=== PATIENT | female | born 1955 | race Caucasian/White ===

== ENCOUNTER → 2016-04-16 | Outpatient (CLI) | payer MEDICARE, MEDICAID ==
[~2016-04-16] MED LIST: ALORA0.05 MG/24 TD; ASPIR-LOW81 MG PO; ASPIRIN 81M81 MG/TA2 PO; ATIVAN1 MG PO; BYDUREON2MG SQ; CYMBALTA 30MG30 MG; ELMIRON PO; ESTRADIOL0.5 MG PO; GLUCOPHAGE500 MG/TAB PO; IBUPROFEN; LIPITOR 40MG TA40 MG PO; LISINOPRIL10 MG PO; LORTAB 5/500 501 TAB PO; LORTAB PO; MOBIC15 MG; MORPHINE; MOTRIN800 MG PO; MS CONTIN30 MG PO; NEURONTIN800 MG/TAB PO; NORCO 325 MG-51 TAB PO; OMEGA-3 FISH1200 MG PO; PERCOCET 325 MG1 TA2 PO; PHENERGAN 25 TA25 MG PO; PRAVACHOL10 MG PO; ROBINUL1ML; TRICOR145 MG PO; TYLENOL 500MG500 MG PO; ULTRAM50 MG PO; VALIUM 2MG T2 MG/TAB PO; VALIUM 5MG T5 MG/TAB; VALIUM5 MG PO; VIT D; VITAMIN D1000 IU PO; ZESTRIL 10MG10 MG PO; [UNRECOGNIZED DRUG - OTHER] PO; [UNRECOGNIZED DRUG - REMARK]
== END ==
LOC: MC.RAD 13:33
DX: Z12.31 Encounter for screening mammogram for malignant neoplasm of breast (principal)

== ENCOUNTER → 2016-07-04 | Outpatient (CLI) | payer MEDICARE, MEDICAID | LOC: COL.RAD 07:30 | PROVIDERS: Family Medicine | DX: Z13.89 Encounter for screening for other disorder (principal); M54.2 Cervicalgia; M48.02 Spinal stenosis, cervical region; Z98.1 Arthrodesis status | CPT/HCPCS: A9585 ==

== ENCOUNTER → 2016-07-23 | Outpatient (CLI) | payer MEDICARE, MEDICAID | LOC: MHCPAIN 07:36 | DX: G89.29 Other chronic pain (principal); M50.90 Cervical disc disorder, unspecified, unspecified cervical region; M48.02 Spinal stenosis, cervical region | CPT/HCPCS: G0463 ==

== ENCOUNTER → 2016-07-31 | Outpatient (CLI) | payer MEDICARE, MEDICAID | LOC: MHCPAIN 08:25 | DX: M50.30 Other cervical disc degeneration, unspecified cervical region (principal) ==

== ENCOUNTER → 2016-08-06 | Outpatient (CLI) | payer MEDICARE, MEDICAID | LOC: MHCPAIN 11:49 | DX: G89.29 Other chronic pain (principal); M50.90 Cervical disc disorder, unspecified, unspecified cervical region; M54.12 Radiculopathy, cervical region; M48.02 Spinal stenosis, cervical region | CPT/HCPCS: G0463 ==

== ENCOUNTER → 2016-08-14 | Outpatient (CLI) | payer MEDICARE, MEDICAID | LOC: MHCPAIN 07:43 | DX: M50.90 Cervical disc disorder, unspecified, unspecified cervical region (principal) | CPT/HCPCS: J1040; Q9967 ==

== ENCOUNTER → 2016-08-19 | Outpatient (CLI) | payer MEDICARE, MEDICAID | LOC: MHCPAIN 08:26 | DX: G89.29 Other chronic pain (principal); M50.90 Cervical disc disorder, unspecified, unspecified cervical region; M54.12 Radiculopathy, cervical region; M54.81 Occipital neuralgia; R51 Headache; Z87.891 Personal history of nicotine dependence | CPT/HCPCS: G0463 ==

== ENCOUNTER 2016-09-13 14:21 | Emergency (ER) | payer MEDICARE, MEDICAID ==
[~2016-09-13] VITALS: Ht 167.6 cm; Wt 80.5 kg
[~2016-09-13 14:21] MED LIST changes: -CYMBALTA 30MG30 MG; -LIPITOR 40MG TA40 MG PO; -MOBIC15 MG; -NEURONTIN800 MG/TAB PO; -PHENERGAN 25 TA25 MG PO; -ROBINUL1ML; -ZESTRIL 10MG10 MG PO
[2016-09-13 14:25] VITALS: TEMP 97.8
[2016-09-13] MEDS ORDERED: ROBINUL1ML (14:30)
[2016-09-13] MEDS ORDERED: LIPITOR 40MG TA40 MG PO (14:31)
[2016-09-13] MEDS ORDERED: ZESTRIL 10MG10 MG PO (14:31)
[2016-09-13] MEDS ORDERED: CYMBALTA 30MG30 MG (14:32)
[2016-09-13] MEDS ORDERED: MOBIC15 MG (14:32)
[2016-09-13] MEDS ORDERED: NEURONTIN800 MG/TAB PO (14:33)
[2016-09-13 15:37] LABS: BASO % 0.4 % (0.0-2.0); EOS # 0.3 (0.0-0.7); EOS % 3.3 % (0-4.0); GRAN # 5.1 (1.4-6.5); GRAN % 67.6 % (42.2-75.2); HEMATOCRIT 50.5 % (37.0-47.0); HEMOGLOBIN 16.6 g/dl (12.5-16.0); LYMPH # 1.7 (1.2-3.4); LYMPH % 22.1 % (20.0-51.0); MEAN CELL VOLUME 92 fl (80.0-100.0); MEAN CORPUSCULAR HEMOGLOBIN 30 pg (27.0-31.0); MEAN CORPUSCULAR HGB CONC 33 g/dl (33.0-37.0); MEAN PLATELET VOLUME 10.2 fl (7.4-10.4); MONO # 0.5 (0.1-0.6); MONO % 6.5 % (1.7-9.3); PLATELET COUNT 344 K/mm3 (130-400); RED BLOOD COUNT 5.52 M/mm3 (4.10-5.30); REDCELL DISTRIBUTION WIDTH-CV 13.1 % (11.5-14.5); WHITE BLOOD COUNT 7.6 K/mm3 (4.8-10.8)
[2016-09-13 15:46] LABS: ADJUSTED CALCIUM 9.2 mg/dL (8.4-10.2); ALBUMIN 4.9 gm/dL (3.5-5.0); BILIRUBIN,TOTAL 0.7 mg/dL (0.0-1.0); CALCIUM 9.9 mg/dL (8.4-10.2); CREATININE, serum 0.66 mg/dL (0.52-1.25); TOTAL PROTEIN 8.2 gm/dL (6.4-8.2)
[2016-09-13] MEDS ORDERED: PHENERGAN 25 TA25 MG PO (16:36)
[2016-09-13 17:30] LABS: PH 6 (5-8); SQUAMOUS EPITHELIAL >50 /hpf; URINE APPEARANCE Cloudy; URINE BACTERIA None Seen /hpf; URINE BILIRUBIN Negative (NEGATIVE); URINE BLOOD 2+ (NEGATIVE); URINE COLOR Yellow; URINE GLUCOSE 3+ (NEGATIVE); URINE KETONE Negative (NEGATIVE); URINE RBC 20-50 /hpf; URINE UROBILINOGEN Negative (NEGATIVE)
[2016-09-13 17:31] LABS: URINE WBC >50 /hpf
[2016-09-13 17:49] VITALS: PULSE 102
== END 2016-09-13 17:50 | disposition home or self-care (01) ==
LOC: COL.ER 14:21
PROVIDERS: Emergency Medicine
DX: R10.84 Generalized abdominal pain (principal); R11.2 Nausea with vomiting, unspecified; R19.7 Diarrhea, unspecified; E11.9 Type 2 diabetes mellitus without complications; Z79.84 Long term (current) use of oral hypoglycemic drugs
CPT/HCPCS: J2405; J2550; J7030

== ENCOUNTER → 2016-09-23 | Outpatient (CLI) | payer MEDICARE, MEDICAID ==
[~2016-09-23] MED LIST changes: +CYMBALTA 30MG30 MG; +LIPITOR 40MG TA40 MG PO; +MOBIC15 MG; +NEURONTIN800 MG/TAB PO; +PHENERGAN 25 TA25 MG PO; +ROBINUL1ML; +ZESTRIL 10MG10 MG PO
== END ==
LOC: MHCPAIN 09:32
DX: G89.29 Other chronic pain (principal); M50.90 Cervical disc disorder, unspecified, unspecified cervical region; M54.12 Radiculopathy, cervical region; M54.81 Occipital neuralgia; M54.16 Radiculopathy, lumbar region; M96.1 Postlaminectomy syndrome, not elsewhere classified
CPT/HCPCS: G0463

== ENCOUNTER → 2016-09-29 | Outpatient (CLI) | payer MEDICARE, MEDICAID | LOC: COL.RAD 10:32 | DX: M51.16 Intervertebral disc disorders with radiculopathy, lumbar region (principal); M48.06 Spinal stenosis, lumbar region ==

== ENCOUNTER 2016-10-20 15:00 | Outpatient (RCR) | payer MEDICARE, MEDICAID | END 2017-01-08 | disposition still patient (30) | LOC: MKS.ESL.PT | DX: M51.17 Intervertebral disc disorders with radiculopathy, lumbosacral region (principal); Z90.49 Acquired absence of other specified parts of digestive tract; Z98.1 Arthrodesis status | CPT/HCPCS: G8978-GP; G8979-GP ==

== ENCOUNTER → 2016-10-21 | Outpatient (CLI) | payer MEDICARE, MEDICAID | LOC: MHCPAIN 09:04 | DX: G89.29 Other chronic pain (principal); M47.817 Spondylosis without myelopathy or radiculopathy, lumbosacral region; M54.16 Radiculopathy, lumbar region; M50.90 Cervical disc disorder, unspecified, unspecified cervical region; M96.1 Postlaminectomy syndrome, not elsewhere classified; Z87.891 Personal history of nicotine dependence | CPT/HCPCS: G0463 ==

== ENCOUNTER → 2016-11-19 | Outpatient (CLI) | payer MEDICARE, MEDICAID | LOC: MHCPAIN 12:16 | DX: G89.29 Other chronic pain (principal); M47.817 Spondylosis without myelopathy or radiculopathy, lumbosacral region; M54.16 Radiculopathy, lumbar region; M53.3 Sacrococcygeal disorders, not elsewhere classified | CPT/HCPCS: G0463 ==

== ENCOUNTER → 2016-11-20 | Outpatient (CLI) | payer MEDICARE, MEDICAID | LOC: MHCPAIN 10:15 | DX: M54.16 Radiculopathy, lumbar region (principal) | CPT/HCPCS: J1100; Q9967 ==

== ENCOUNTER → 2016-12-05 | Outpatient (CLI) | payer MEDICARE, MEDICAID | LOC: MHCPAIN 11:15 | DX: G89.29 Other chronic pain (principal); M47.27 Other spondylosis with radiculopathy, lumbosacral region; M96.1 Postlaminectomy syndrome, not elsewhere classified; Z87.891 Personal history of nicotine dependence | CPT/HCPCS: G0463 ==

== ENCOUNTER → 2017-01-05 | Outpatient (CLI) | payer MEDICARE, MEDICAID | LOC: MHCPAIN 11:05 | DX: G89.29 Other chronic pain (principal); M47.817 Spondylosis without myelopathy or radiculopathy, lumbosacral region; M54.16 Radiculopathy, lumbar region; M96.1 Postlaminectomy syndrome, not elsewhere classified; M54.81 Occipital neuralgia; M50.90 Cervical disc disorder, unspecified, unspecified cervical region; R51 Headache | CPT/HCPCS: G0463 ==

== ENCOUNTER → 2017-03-30 | Outpatient (CLI) | payer MEDICARE, MEDICAID | LOC: MHCPAIN 11:30 | DX: G89.29 Other chronic pain (principal); M47.27 Other spondylosis with radiculopathy, lumbosacral region; M96.1 Postlaminectomy syndrome, not elsewhere classified; M50.90 Cervical disc disorder, unspecified, unspecified cervical region; Z87.891 Personal history of nicotine dependence | CPT/HCPCS: G0463 ==

== ENCOUNTER → 2017-07-08 | Outpatient (CLI) | payer MEDICARE, MEDICAID | LOC: MHCPAIN 11:42 | DX: G89.29 Other chronic pain (principal); M50.90 Cervical disc disorder, unspecified, unspecified cervical region; M54.12 Radiculopathy, cervical region; R51 Headache | CPT/HCPCS: G0463 ==

== ENCOUNTER → 2017-07-24 | Outpatient (CLI) | payer MEDICARE, MEDICAID ==
[~2017-07-24] MED LIST changes: +BYDUREON PEN2 MG SQ; +CANA300T PO; +MINIPRESS 5M5 MG/CAP PO; +PRINIVIL5 MG PO
== END ==
LOC: MHCPAIN 11:50
DX: G89.29 Other chronic pain (principal); M50.90 Cervical disc disorder, unspecified, unspecified cervical region; M17.11 Unilateral primary osteoarthritis, right knee; M16.11 Unilateral primary osteoarthritis, right hip
CPT/HCPCS: G0463

== ENCOUNTER 2017-07-29 02:34 | Emergency (ER) | payer MEDICARE, MEDICAID ==
[~2017-07-29 02:34] MED LIST changes: -BYDUREON PEN2 MG SQ; -CANA300T PO; -MINIPRESS 5M5 MG/CAP PO; -PRINIVIL5 MG PO
[2017-07-29 02:37] VITALS: TEMP 97.9
[2017-07-29 03:23] LABS: BASO # 0.1 (0.0-0.2); BASO % 0.6 % (0.0-2.0); EOS # 0.1 (0.0-0.7); EOS % 0.8 % (0-4.0); GRAN # 5.9 (1.4-6.5); GRAN % 68.6 % (42.2-75.2); HEMATOCRIT 46.8 % (37.0-47.0); HEMOGLOBIN 15.4 g/dl (12.5-16.0); LYMPH % 23.4 % (20.0-51.0); MEAN CELL VOLUME 92 fl (80.0-100.0); MEAN CORPUSCULAR HEMOGLOBIN 30 pg (27.0-31.0); MEAN CORPUSCULAR HGB CONC 33 g/dl (33.0-37.0); MEAN PLATELET VOLUME 9.4 fl (7.4-10.4); MONO # 0.5 (0.1-0.6); MONO % 6.2 % (1.7-9.3); PLATELET COUNT 402 K/mm3 (130-400); REDCELL DISTRIBUTION WIDTH-CV 12.9 % (11.5-14.5)
[2017-07-29] MEDS ORDERED: BYDUREON PEN2 MG SQ (03:32)
[2017-07-29] MEDS ORDERED: PRINIVIL5 MG PO (03:32)
[2017-07-29] MEDS ORDERED: CANA300T PO (03:32)
[2017-07-29] MEDS ORDERED: PERCOCET 325 MG1 TA2 PO (03:34)
[2017-07-29] MEDS ORDERED: MINIPRESS 5M5 MG/CAP PO (03:34)
[2017-07-29 03:35] LABS: ALANINE AMINOTRANSFERASE 35 U/L (9-52); ALBUMIN 4.8 gm/dL (3.5-5.0); ALKALINE PHOSPHATASE 96 U/L (50-136); ANION GAP 18 mmol/L (7-16); AST,SGOT 20 U/L (15-37); BILIRUBIN,TOTAL 0.4 mg/dL (0.0-1.0); BLOOD UREA NITROGEN 16 mg/dL (7-17); C-REACTIVE PROTEIN < 0.5 mg/dL (0.0-0.9); CALCIUM 9.9 mg/dL (8.4-10.2); CARBON DIOXIDE 23 mmol/L (22-30); CHLORIDE 104 mmol/L (98-107); CREATININE, serum 0.56 mg/dL (0.52-1.25); GLUCOSE 146 mg/dL (74-106); POTASSIUM 3.7 mmol/L (3.4-5.0); SODIUM 145 mmol/L (137-145); TOTAL PROTEIN 9.1 gm/dL (6.4-8.2)
[2017-07-29 04:15] VITALS: BP 129/79; PULSE 87
== END 2017-07-29 04:15 | disposition home or self-care (01) ==
LOC: COL.ER 02:34
PROVIDERS: Emergency Medicine
DX: G89.29 Other chronic pain (principal); M79.1 Myalgia; M25.50 Pain in unspecified joint; Z90.710 Acquired absence of both cervix and uterus; Z87.442 Personal history of urinary calculi; Z87.891 Personal history of nicotine dependence; Z98.51 Tubal ligation status; Z79.84 Long term (current) use of oral hypoglycemic drugs
CPT/HCPCS: J1885; J2060; J7030

== ENCOUNTER → 2017-07-30 | Outpatient (CLI) | payer MEDICARE, MEDICAID ==
[~2017-07-30] MED LIST changes: +BYDUREON PEN2 MG SQ; +CANA300T PO; +MINIPRESS 5M5 MG/CAP PO; +PRINIVIL5 MG PO
== END ==
LOC: MHCPAIN 08:24
DX: M16.11 Unilateral primary osteoarthritis, right hip (principal); M17.11 Unilateral primary osteoarthritis, right knee
CPT/HCPCS: J1040; Q9967

== ENCOUNTER → 2017-08-12 | Outpatient (CLI) | payer MEDICARE, MEDICAID | LOC: MHCPAIN 09:39 | DX: G89.29 Other chronic pain (principal); M47.817 Spondylosis without myelopathy or radiculopathy, lumbosacral region; M54.16 Radiculopathy, lumbar region; M53.3 Sacrococcygeal disorders, not elsewhere classified; M96.1 Postlaminectomy syndrome, not elsewhere classified; M16.11 Unilateral primary osteoarthritis, right hip; M17.11 Unilateral primary osteoarthritis, right knee | CPT/HCPCS: G0463 ==

== ENCOUNTER → 2017-09-01 | Outpatient (CLI) | payer MEDICARE, MEDICAID | LOC: MC.RAD 10:52 | DX: Z12.31 Encounter for screening mammogram for malignant neoplasm of breast (principal) ==

== ENCOUNTER 2017-09-03 10:00 | Outpatient (RCR) | payer MEDICARE, MEDICAID | END 2017-09-24 09:34 | disposition home or self-care (01) | LOC: MKS.ESL.PT 10:00 | DX: M96.1 Postlaminectomy syndrome, not elsewhere classified (principal); M47.27 Other spondylosis with radiculopathy, lumbosacral region; M25.551 Pain in right hip; M53.3 Sacrococcygeal disorders, not elsewhere classified | CPT/HCPCS: G0283-GP; G8990-GP; G8991-GP; G8992-GP ==

== ENCOUNTER → 2017-10-20 | Outpatient (CLI) | payer MEDICARE, MEDICAID | LOC: MHCPAIN 12:31 | DX: G89.29 Other chronic pain (principal); M47.817 Spondylosis without myelopathy or radiculopathy, lumbosacral region; M54.16 Radiculopathy, lumbar region; M53.3 Sacrococcygeal disorders, not elsewhere classified; M96.1 Postlaminectomy syndrome, not elsewhere classified; M48.061 Spinal stenosis, lumbar region without neurogenic claudication | CPT/HCPCS: G0463 ==

== ENCOUNTER → 2017-10-26 | Outpatient (CLI) | payer MEDICARE, MEDICAID | LOC: MHCPAIN 12:50 | DX: M47.817 Spondylosis without myelopathy or radiculopathy, lumbosacral region (principal); M51.26 Other intervertebral disc displacement, lumbar region | CPT/HCPCS: J1040; J1100; J2250; J3010; Q9967 ==

== ENCOUNTER → 2018-01-19 | Outpatient (CLI) | payer MEDICARE, MEDICAID | LOC: MHCPAIN 13:41 | DX: G89.29 Other chronic pain (principal); M47.817 Spondylosis without myelopathy or radiculopathy, lumbosacral region; M54.16 Radiculopathy, lumbar region; M53.3 Sacrococcygeal disorders, not elsewhere classified; M96.1 Postlaminectomy syndrome, not elsewhere classified | CPT/HCPCS: G0463 ==

== ENCOUNTER → 2018-02-12 | Outpatient (CLI) | payer MEDICARE, MEDICAID | LOC: COL.LAB 08:47 | DX: Z01.812 Encounter for preprocedural laboratory examination (principal); M16.11 Unilateral primary osteoarthritis, right hip ==

== ENCOUNTER → 2018-02-23 | Outpatient (REF) ==
[2018-02-23 09:27] LABS: COLLECTION METHOD CATHETER
[2018-02-23 09:36] LABS: PH 6 (5-8); URINE APPEARANCE Hazy; URINE BACTERIA None Seen /hpf; URINE BILIRUBIN Negative (NEGATIVE); URINE BLOOD 1+ (NEGATIVE); URINE COLOR Yellow; URINE GLUCOSE 3+ (NEGATIVE); URINE KETONE Trace (NEGATIVE); URINE LEUKOCYTE ESTERASE 3+ (NEGATIVE); URINE NITRATE Negative (NEGATIVE); URINE PROTEIN(semi-quant) Negative (NEGATIVE); URINE UROBILINOGEN Negative (NEGATIVE)
== END ==
LOC: ZMSC 09:25
PROVIDERS: Orthopaedic Surgery
DX: Z01.89 Encounter for other specified special examinations (principal)

== ENCOUNTER → 2018-05-04 | Outpatient (CLI) | payer MEDICARE, MEDICAID | LOC: COL.RAD 09:13 | DX: M48.07 Spinal stenosis, lumbosacral region (principal); M51.16 Intervertebral disc disorders with radiculopathy, lumbar region; Z96.641 Presence of right artificial hip joint ==

== ENCOUNTER → 2018-07-05 | Outpatient (CLI) | payer MEDICARE, MEDICAID | LOC: MHCPAIN 09:03 | DX: G89.29 Other chronic pain (principal); M47.817 Spondylosis without myelopathy or radiculopathy, lumbosacral region; M54.16 Radiculopathy, lumbar region; M53.3 Sacrococcygeal disorders, not elsewhere classified; M96.1 Postlaminectomy syndrome, not elsewhere classified; M50.90 Cervical disc disorder, unspecified, unspecified cervical region; M54.12 Radiculopathy, cervical region | CPT/HCPCS: G0463 ==

== ENCOUNTER → 2018-07-15 | Outpatient (CLI) | payer MEDICARE, MEDICAID | LOC: COL.RAD 11:59 | DX: M19.011 Primary osteoarthritis, right shoulder (principal); M75.101 Unspecified rotator cuff tear or rupture of right shoulder, not specified as traumatic ==

== ENCOUNTER → 2018-09-01 | Outpatient (CLI) | payer MEDICARE, MEDICAID | LOC: MHCPAIN 08:31 | DX: G89.29 Other chronic pain (principal); M47.817 Spondylosis without myelopathy or radiculopathy, lumbosacral region; M54.16 Radiculopathy, lumbar region; M53.3 Sacrococcygeal disorders, not elsewhere classified | CPT/HCPCS: G0463 ==

== ENCOUNTER → 2018-09-09 | Outpatient (CLI) | payer MEDICARE, MEDICAID | LOC: MHCPAIN 07:53 | DX: M47.817 Spondylosis without myelopathy or radiculopathy, lumbosacral region (principal); M54.16 Radiculopathy, lumbar region | CPT/HCPCS: J1100; Q9967 ==

== ENCOUNTER → 2018-09-21 | Outpatient (CLI) | payer MEDICARE, MEDICAID | LOC: MHCPAIN 10:07 | DX: G89.29 Other chronic pain (principal); M47.817 Spondylosis without myelopathy or radiculopathy, lumbosacral region; M54.16 Radiculopathy, lumbar region; M53.3 Sacrococcygeal disorders, not elsewhere classified; M96.1 Postlaminectomy syndrome, not elsewhere classified | CPT/HCPCS: G0463 ==

== ENCOUNTER 2018-10-28 10:45 | Outpatient (RCR) | payer MEDICARE, MEDICAID | END 2018-10-31 | disposition still patient (30) | LOC: WSPT | DX: M25.511 Pain in right shoulder (principal); R53.1 Weakness ==

== ENCOUNTER 2018-12-06 11:00 | Outpatient (RCR) | payer MEDICARE, MEDICAID | END 2019-01-31 | LOC: WSPT | DX: M25.511 Pain in right shoulder (principal); M25.551 Pain in right hip; M21.41 Flat foot [pes planus] (acquired), right foot ==

== ENCOUNTER → 2019-10-26 | Outpatient (CLI) | payer MEDICARE, MEDICAID | LOC: MHCPAIN 09:00 | DX: M47.812 Spondylosis without myelopathy or radiculopathy, cervical region (principal); M54.2 Cervicalgia | CPT/HCPCS: G0463 ==

== ENCOUNTER → 2019-11-01 | Outpatient (CLI) | payer MEDICARE, MEDICAID | LOC: COL.RAD 13:25 | DX: Z01.812 Encounter for preprocedural laboratory examination (principal); E11.9 Type 2 diabetes mellitus without complications; M48.02 Spinal stenosis, cervical region; M25.78 Osteophyte, vertebrae; Z98.1 Arthrodesis status | CPT/HCPCS: A9585 ==

== ENCOUNTER 2019-12-20 18:12 | Emergency (ER) | payer MEDICARE, MEDICAID ==
[~2019-12-20] VITALS: Ht 172.7 cm; Wt 81.8 kg
[~2019-12-20 18:12] MED LIST changes: +FARXIGA10 PO; +FORT1000TA PO; +OMNICEF 300MG300 MG PO; +PRAVACHOL 40MG40 MG PO
[2019-12-20 18:19] VITALS: TEMP 97.5
[2019-12-20 18:43] LABS: BASO % 0.6 % (0.0-2.0); EOS # 0.1 (0.0-0.7); EOS % 1.7 % (0-4.0); GRAN # 3.4 (1.4-6.5); GRAN % 63.8 % (42.2-75.2); HEMATOCRIT 40.8 % (37.0-47.0); HEMOGLOBIN 12.9 g/dl (12.5-16.0); LYMPH # 1.3 (1.2-3.4); LYMPH % 24.3 % (20.0-51.0); MEAN CELL VOLUME 94 fl (80.0-100.0); MEAN CORPUSCULAR HEMOGLOBIN 30 pg (27.0-31.0); MEAN CORPUSCULAR HGB CONC 32 g/dl (33.0-37.0); MEAN PLATELET VOLUME 9.7 fl (7.4-10.4); MONO # 0.5 (0.1-0.6); PLATELET COUNT 355 K/mm3 (130-400); RED BLOOD COUNT 4.35 M/mm3 (4.10-5.30); REDCELL DISTRIBUTION WIDTH-CV 13.9 % (11.5-14.5)
[2019-12-20 18:50] LABS: INR 0.9 (0.8-3.0); PROTHROMBIN TIME 10.2 SECONDS (9.7-12.8)
[2019-12-20 18:54] LABS: ALANINE AMINOTRANSFERASE 23 U/L (4-34); ALBUMIN 4.5 gm/dL (3.5-5.0); ALKALINE PHOSPHATASE 81 U/L (50-136); ANION GAP 13 mmol/L (7-16); AST,SGOT 21 U/L (15-37); BILIRUBIN,TOTAL 0.4 mg/dL (0.0-1.0); BLOOD UREA NITROGEN 22 mg/dL (7-17); CALCIUM 9.4 mg/dL (8.4-10.2); CARBON DIOXIDE 21 mmol/L (22-30); CHLORIDE 104 mmol/L (98-107); CREATININE, serum 0.97 (0.52-1.25); GLUCOSE 284 mg/dL (74-106); POTASSIUM 4.5 mmol/L (3.4-5.0); SODIUM 139 mmol/L (137-145); TOTAL PROTEIN 7.4 gm/dL (6.4-8.2)
[2019-12-20 19:06] LABS: TROPONIN-I < 0.012 ng/mL (0.000-0.035)
[2019-12-20 21:20] VITALS: BP 133/91; PULSE 88
== END 2019-12-20 21:20 | disposition home or self-care (01) ==
LOC: COL.ER 18:12
PROVIDERS: Family Medicine
DX: R06.01 Orthopnea (principal); R53.83 Other fatigue; I10 Essential (primary) hypertension; E11.9 Type 2 diabetes mellitus without complications; Z87.891 Personal history of nicotine dependence; Z79.84 Long term (current) use of oral hypoglycemic drugs

== ENCOUNTER 2020-02-21 10:00 | Outpatient (RCR) | payer MEDICARE, MEDICAID | END 2020-03-29 | disposition home or self-care (01) | LOC: MKS.ESL.PT | DX: N39.0 Urinary tract infection, site not specified (principal); R53.1 Weakness; E87.2 Acidosis ==

== ENCOUNTER → 2020-04-30 | Outpatient (CLI) | payer MEDICARE, MEDICAID | LOC: DIA.ED 10:29 | DX: E11.9 Type 2 diabetes mellitus without complications (principal); Z79.4 Long term (current) use of insulin; E78.5 Hyperlipidemia, unspecified; I10 Essential (primary) hypertension | CPT/HCPCS: G0108 ==

== ENCOUNTER 2020-06-12 07:42 | Emergency (ER) | payer MEDICARE, MEDICAID ==
[~2020-06-12] VITALS: Ht 172.7 cm; Wt 82.3 kg
[2020-06-12 07:50] VITALS: TEMP 97.7
[2020-06-12 08:45] LABS: BASO % 0.6 % (0.0-2.0); EOS # 0.1 (0.0-0.7); EOS % 1.6 % (0-4.0); GRAN # 3.2 (1.4-6.5); HEMATOCRIT 47.7 % (37.0-47.0); LYMPH # 1.3 (1.2-3.4); LYMPH % 25.6 % (20.0-51.0); MEAN CELL VOLUME 92 fl (80.0-100.0); MEAN CORPUSCULAR HEMOGLOBIN 31 pg (27.0-31.0); MEAN CORPUSCULAR HGB CONC 34 g/dl (33.0-37.0); MONO # 0.5 (0.1-0.6); PLATELET COUNT 261 K/mm3 (130-400); RED BLOOD COUNT 5.19 M/mm3 (4.10-5.30); REDCELL DISTRIBUTION WIDTH-CV 14.1 % (11.5-14.5)
[2020-06-12 08:57] LABS: COLLECTION METHOD CLEAN CATCH
[2020-06-12 09:10] LABS: MUCOUS Present /lpf; PH 6 (5-8); URINE APPEARANCE Cloudy; URINE BACTERIA None Seen /hpf; URINE BILIRUBIN Negative (NEGATIVE); URINE BLOOD 1+ (NEGATIVE); URINE COLOR Yellow; URINE GLUCOSE 3+ (NEGATIVE); URINE KETONE Trace (NEGATIVE); URINE LEUKOCYTE ESTERASE 3+ (NEGATIVE); URINE NITRATE Negative (NEGATIVE); URINE PROTEIN(semi-quant) Negative (NEGATIVE); URINE UROBILINOGEN Negative (NEGATIVE)
[2020-06-12 09:34] LABS: ALBUMIN 4.4 gm/dL (3.5-5.0); BILIRUBIN,TOTAL 0.6 mg/dL (0.0-1.0); CALCIUM 10.6 mg/dL (8.4-10.2); CREATININE, serum 0.51 (0.52-1.25); POTASSIUM 3.5 mmol/L (3.4-5.0); TOTAL PROTEIN 6.9 gm/dL (6.4-8.2)
[2020-06-12] MEDS ORDERED: OMNICEF 300MG300 MG PO (12:09)
[2020-06-12 12:55] VITALS: BP 130/82; PULSE 95
[2020-12-16] MEDS ORDERED: DIFLUCAN200 MG PO (12:25)
== END 2020-06-12 12:55 | disposition home or self-care (01) ==
LOC: COL.ER 07:42
PROVIDERS: Family Medicine
DX: N39.0 Urinary tract infection, site not specified (principal); E86.0 Dehydration; E11.9 Type 2 diabetes mellitus without complications; I10 Essential (primary) hypertension; Z87.891 Personal history of nicotine dependence; Z79.84 Long term (current) use of oral hypoglycemic drugs; Z20.822 Contact with and (suspected) exposure to COVID-19
CPT/HCPCS: J0696; J1885; J7030

== ENCOUNTER → 2020-07-05 | Outpatient (CLI) | payer MEDICARE, MEDICAID ==
[~2020-07-05] MED LIST changes: +DIFLUCAN200 MG PO; +ULTRAM 50MG TAB50 MG PO
== END ==
LOC: COL.RAD 07:50
DX: N30.21 Other chronic cystitis with hematuria (principal); N32.89 Other specified disorders of bladder

== ENCOUNTER 2020-12-15 10:54 | Emergency (ER) | payer MEDICARE, MEDICAID ==
[~2020-12-15] VITALS: Ht 167.6 cm; Wt 81.8 kg
[~2020-12-15 10:54] MED LIST changes: -DIFLUCAN200 MG PO; -ULTRAM 50MG TAB50 MG PO
[2020-12-15 11:25] LABS: COLLECTION METHOD CLEAN CATCH
[2020-12-15 11:49] LABS: BUDDING YEAST Present /hpf; PH 6 (5-8); URINE APPEARANCE Hazy; URINE BACTERIA None Seen /hpf; URINE BILIRUBIN Negative (NEGATIVE); URINE BLOOD 1+ (NEGATIVE); URINE COLOR Yellow; URINE GLUCOSE 3+ (NEGATIVE); URINE KETONE Negative (NEGATIVE); URINE LEUKOCYTE ESTERASE 3+ (NEGATIVE); URINE NITRATE Negative (NEGATIVE); URINE PROTEIN(semi-quant) Negative (NEGATIVE); URINE UROBILINOGEN Negative (NEGATIVE)
[2020-12-15] MEDS ORDERED: ULTRAM 50MG TAB50 MG PO (11:58)
[2020-12-15] MEDS ORDERED: OMNICEF 300MG300 MG PO (11:58)
[2020-12-15 12:12] VITALS: BP 135/64; PULSE 88; TEMP 98.4
[2020-12-16] MEDS ORDERED: DIFLUCAN200 MG PO (12:25)
== END 2020-12-15 12:14 | disposition home or self-care (01) ==
LOC: COL.ER 10:54
PROVIDERS: Physician Assistant
DX: N30.10 Interstitial cystitis (chronic) without hematuria (principal); E11.9 Type 2 diabetes mellitus without complications; E78.5 Hyperlipidemia, unspecified; I10 Essential (primary) hypertension; Z79.4 Long term (current) use of insulin; Z79.899 Other long term (current) drug therapy

== ENCOUNTER 2022-09-01 10:21 | Inpatient (IN) | payer MEDICARE ==
[~2022-09-01] VITALS: Ht 167.6 cm; Wt 75.4 kg
[~2022-09-01 10:21] MED LIST changes: +DESYREL DIVIDO150 M1 PO; +DIFLUCAN200 MG PO; +EFFEXOR XR75 MG/CAP PO; +EFFEXOR-XR150 MG PO; +LEVEMIR FLEX100 U/ML SQ; +LYRICA 75MG CAP75 MG PO; +MYRBETR50MG PO; +PROPECIA1 MG PO; +TRULICITY1.5 MG/0.5 SQ; +ULTRAM 50MG TAB50 MG PO
[2022-09-01] MEDS ORDERED: ROXICODONE 55 MG/TAB PO (12:31)
[2022-09-01] MEDS ORDERED: TYLENOL 500MG500 MG PO (12:31)
--- NOTE | 2022-09-01 15:00 | NUR ---
Pt admitted to room 336 from 328
[2022-09-01 17:26] VITALS: BP 104/61; PULSE 84; TEMP 98.2
[2022-09-01 19:00] VITALS: BP_SYST 104
[2022-09-02 05:32] VITALS: BP 117/81; PULSE 77; TEMP 98.5
[2022-09-02 07:05] VITALS: BP_SYST 117
--- NOTE | 2022-09-02 09:06 | NUR ---
Follow-up visit; Patient states she continues to do well since she has been transferred to Inpatient Rehabilitation. Machine Cementer And Folder offered continued God's blessings to which patient continues to respond positively.
--- NOTE | 2022-09-02 10:33 | NUR ---
PATIENT ALERT AND ORIENTED X4. BARRIER CREAM PUT ON BUTTOCK FROM DRAGGING HER BOTTOM ON THE CARPET AT HOME AFTER FALLING. WEARING MESH PANTIES NOW. EGG CARTON GIVEN FOR COMFORT. PRN KAYCE FOR PAIN.
--- NOTE | 2022-09-02 15:14 | NUR ---
SW met with the patient to complete intake. The patient lives alone in [place]. She reports independence with ADLs and does not have any DME. The patient's PCP is Dr. Neftali Cuellar and she obtains her medications from [facility]. The patient does not have a DPOA-HC, but she was interested in obtaining a form. MONA provided. The patient states that she is not and that she has two children: Shanell Ugalde (ph#[phone]) and Judith. She provides that she would not want her daughters being her DPOA-HC or decision makers. She states that she needs some time to think about who she would designate, but is thinking she would appointment her brother that lives in [place]. The patient states that therapy is going well so far and she is thankful for how warm the staff has been. She had no concerns for MONA at this time.
[2022-09-02 17:26] VITALS: BP 109/79; PULSE 85; TEMP 98.1
[2022-09-02 19:00] VITALS: BP_SYST 109
--- NOTE | 2022-09-02 20:30 | NUR ---
Patient resting quietly in bed. Reports 4/10 pain in R hip but denies needing PRN medication at this time. She is assisted to toilet and back to bed with gait belt and walker; tolerated well. Safety precautions in place. Call light within reach.
--- NOTE | 2022-09-02 20:38 | NUR ---
Has lack of transportation kept you from medical appts, meetings, work, or from getting things needed for daily living? NO How often do you feel lonely or isolated from those around you? RARELY Over the past 5 days, how much of the time has pain made it hard for you to sleep? RARELY/NOT AT ALL Over the past 5 days, how often have you limited your participation in therapy due to pain? RARELY/NOT AT ALL Over the past 5 days, how often have you limited your day-to-day activities because of pain? RARELY/NOT AT ALL Have you had 2 or more falls in the past year or any fall with an injury? YES Did you have major surgery during the 100 days prior to admission? YES
[2022-09-03 05:51] VITALS: BP 114/72; PULSE 82; TEMP 97.9
[2022-09-03 06:53] VITALS: BP_SYST 114
--- NOTE | 2022-09-03 06:53 | NUR ---
Shift report received from powdered sugar supervisor RN. Pt awake and sitting up in the recliner. She denies pain/discomfort and other needs. Call light is in her reach. Bed alarm is on.
--- NOTE | 2022-09-03 08:21 | NUR ---
Pt is off the unit w/ PT
--- NOTE | 2022-09-03 09:22 | NUR ---
Pt back in room after PT and is sitting up in the recliner w/ BLE elevated on the footrest. Pain medication was given approx 30 minutes ago and reports that her pain level is improved at 4/10. She denies other needs. Call light is in her reach. Chair alarm is on.
--- NOTE | 2022-09-03 14:55 | NUR ---
MONA met with the patient to present and review the IPR Team Conference Note. The team has set a tentative discharge date for next , 09/11, with home health services for senior living/PT/OT. The team recommends a FWW and shower seat for equipment. The patient is in agreement to the plan and to order the FWW from [facility]. MONA informed the patient where she could purchase the shower seat. The patient verbalized understanding. MONA provided the patient with [employer]'s list of home health agencies that serve [place]. The patient chose [facility]. The team would also like to set up a patient/family meeting or a team meeting with the patient. The patient states that she does not want her daughters involved and would just prefer to do the meeting with the team by herself. The meeting was scheduled on Thursday, 09/09, at 0930. The patient also shares that she will not have transport home, but states that she can take the [employer] bus. She just wants to make sure she can get up the three steps. MONA answered all questions. MONA staffed with OT about the steps. MONA notified IPR Director about the meeting. MONA contacted and faxed a referral to eYssica at [facility]. Awaiting screen.
--- NOTE | 2022-09-03 15:44 | NUR ---
Pt sitting up in the recliner watching tv. Scheduled Tylenol given as ordered. Pt reports no BM x 3-4 days and is requesting "a laxative". Miralax & Colace given per PRN order. She denies other needs. Call light is in her reach. Chair alarm is on.
[2022-09-03 17:06] VITALS: BP 125/90; PULSE 92; TEMP 99.2
--- NOTE | 2022-09-03 18:40 | NUR ---
RECEIVED CHANGE OF SHIFT REPORT FROM DAY SHIFT RN.
--- NOTE | 2022-09-04 01:06 | NUR ---
Patient requested and given pain meds for the second dosing so far this shift. Exit alarms on while up in chair or in bed with call light in reach. Patient states she has been trying to keep weight off RLE as instructed by ortho providers. Reports she is passing flatus but has not had a BM since admit to this facility.
[2022-09-04 05:01] VITALS: BP 138/88; PULSE 80; TEMP 97.4
--- NOTE | 2022-09-04 06:37 | NUR ---
Change of shift report given to day shift RNJacquie.
[2022-09-04 06:52] VITALS: BP_SYST 138
--- NOTE | 2022-09-04 06:52 | NUR ---
Shift report received from in store representative RN. Pt awake and sitting up in the recliner. She denies pain/discomfort. Reports sleeping well during the night. Call light is in her reach. Chair alarm is on.
--- NOTE | 2022-09-04 10:35 | NUR ---
Pt is off the unit for Group Therapy.
--- NOTE | 2022-09-04 12:50 | NUR ---
SW contacted and faxed the FWW order to Jamaal at [facility].
--- NOTE | 2022-09-04 12:52 | NUR ---
Yessica, at [facility], reports that they are able to accept the patient.
--- NOTE | 2022-09-04 13:25 | NUR ---
Admission QIM scores were reviewed by the team. Code of 3 chosen for toileting hygiene was determined by team discussion to be the most usual performance before interventions for this patient during the assessment period. Code of 2 chosen for toilet transfers was determined by team discussion to be the most usual performance before interventions for this patient during the assessment period. Code of 3 chosen for shower/bathe self was determined by team discussion to be the most usual performance before interventions for this patient during the assessment period. Code of 3 chosen for lower body dressing was determined by team discussion to be the most usual performance before interventions for this patient during the assessment period. Code of 3 chosen for lying to sitting on side of bed was determined by team discussion to be the most usual performance before interventions for this patient during the assessment period. Code of 3 chosen for walk 50 feet w/ 2 turns was determined by team discussion to be the most usual performance before interventions for this patient during the assessment period.--Gilma Garsia, PD
[2022-09-04 17:28] VITALS: BP 103/67; PULSE 92; TEMP 98.5
[2022-09-04 18:30] VITALS: BP_SYST 103
--- NOTE | 2022-09-04 19:45 | NUR ---
PT RESTING IN BED. A&OX4. PT REPORTS HAS NOT HAD A BM X5 DAYS. GAVE SUPPOSITIORY. PT UP TO BR W/ WALKER AFTER APRROX 20MIN. HAD SMALL HARD STOOL W/ VOID. RT TTWB. CARLOS WELL. HS CARES COMPLETED. TO BED. CALL LIGHT IN REACH. BED ALARM SET. TOO SOON FOR PAIN MED.
--- NOTE | 2022-09-04 21:15 | NUR ---
ACCUCHECK 321. 6 UNITS NOVOLOG SQ GIVEN. ALONG WITH LEVEMIER 30 UNITS. SEE MAR FOR ROXICODONE GIVEN FOR LEVEL 7/10 RT HIP PAIN.
[2022-09-05 05:11] VITALS: BP 107/75; PULSE 80; TEMP 97.7
[2022-09-05 07:04] VITALS: BP_SYST 107
[2022-09-05 19:00] VITALS: BP_SYST 107
[2022-09-06 06:09] VITALS: BP 118/79; PULSE 100; TEMP 98.1
[2022-09-06 06:44] VITALS: BP_SYST 118
--- NOTE | 2022-09-06 10:58 | NUR ---
Brick Yard Hand rounds: Patient was in recliner, watching TV. Patient declined Brick Yard Hand visit because she wants to take it easy today and not do anything.
[2022-09-06 17:06] VITALS: BP 124/76; PULSE 96; TEMP 97.5
[2022-09-06 19:03] VITALS: BP_SYST 124
--- NOTE | 2022-09-06 19:45 | NUR ---
PT RESTING IN BED. C/O RLE PAIN LEVEL 09/20. SEE MAR FOR ROXICODONE GIVEN. PT DENIES RESULTS OR PASSING FLATUS FROM SUPPOSITORY GIVEN EARLIER TODAY. ABD DISTENDED BUT SOFT. BS ACTIVE X 4QUAD. ASSISTED TO BR WITH WALKER. NO RESULTS. VOIDED. BACK TO BED. CALL LIGHT IN REACH. BED ALARM SET.
[2022-09-07 06:09] VITALS: BP 115/75; PULSE 75; TEMP 98.7
[2022-09-07 06:39] VITALS: BP_SYST 115
--- NOTE | 2022-09-07 11:55 | NUR ---
Loader Technician rounds: Loader Technician visit attempted. Patient declined.
[2022-09-07 16:30] VITALS: BP 112/78; PULSE 93; TEMP 98.5
--- NOTE | 2022-09-07 18:01 | NUR ---
PATIENT ALERT AND ORIENTED X4. PRN KAYCE FOR PAIN. PATIENT HAD MIRALAX DUE TO BEING CONSTIPATED. ACHS BLOOD SUGARS. SLIDING SCALE INSULIN.
[2022-09-07 19:00] VITALS: BP_SYST 112
--- NOTE | 2022-09-07 21:00 | NUR ---
PT SITTING IN RECLINER. SBA TO BR WITH WALKER. PT REPORTED BM EARLIER TODAY. SEE MAR FOR PAIN MED GIVEN. DIVERSITY SPECIALIST ASSISTED PT WITH HS CARES. ACCUCHECK 258. SSI GIVEN. CALL LIGHT IN REACH. BED ALARM SET.
[2022-09-08 06:06] VITALS: BP 104/70; PULSE 86; TEMP 98.5
[2022-09-08 07:04] VITALS: BP_SYST 104
--- NOTE | 2022-09-08 08:34 | NUR ---
PATIENT ALERT AND ORIENTED X4 .VSS. PATIENT HERE FOR RIGHT HIP FRACTURE. PATIENT DENIES PAIN AT THIS TIME. ASSESSMENT PERFORMED. AM MEDS ADMINISTERED. PATIENT FINISHING BREAKFAST, WAITING FOR THERAPY. CALL LIGHT IN REACH. CHAIR ALARM ACTIVATED.
[2022-09-08 17:21] VITALS: BP 133/82; PULSE 90; TEMP 98.4
--- NOTE | 2022-09-08 19:06 | NUR ---
RECEIVED CHANGE OF SHIFT REPORT FROM DAY SHIFT RN.
--- NOTE | 2022-09-08 21:15 | NUR ---
PATIENT REQUESTING ENEMA, REFUSING SUPP. CALLED [facility] REGARDING PATIENT'S REQUEST, PROVIDER TO ENTER ORDER.
--- NOTE | 2022-09-08 22:22 | NUR ---
IV FLUIDS STOPPED PER PROVIDER VERBAL ORDER.
--- NOTE | 2022-09-08 23:20 | NUR ---
FLEET ENEMA STILL NOT AVAILABLE AT THIS TIME, PATIENT STATES WILL TAKE ENEMA AROUND 0500 SINCE ENEMA NOT AVAILABLE. REPORTS STILL FEELS BLOATED AND CONSTIPATED.
--- NOTE | 2022-09-09 00:30 | NUR ---
PATIENT SLEEPING, DOES NOT WAKE WHEN ROOM ENTERED ON ROUNDS, BREATHING NONLABORED AND EVEN. EXIT ALARM ON, CALL LIGHT IN REACH.
[2022-09-09 05:08] VITALS: BP 138/78; PULSE 82; TEMP 97.7
[2022-09-09 07:01] VITALS: BP_SYST 138
--- NOTE | 2022-09-09 07:02 | NUR ---
Shift report received from consulting database administrator RN. Pt sitting up in the recliner. Pt requesting pain medication before she starts her therapies for today. Pt denies other needs. Call light in her reach. Chair alarm is on.
--- NOTE | 2022-09-09 08:25 | NUR ---
Pt is off the unit for PT.
--- NOTE | 2022-09-09 09:07 | NUR ---
Pt reporting painful leg spasms that have been present x 4-5 days. Pt says she usually increases her water intake and it goes away. Pt would also like a stool softener ordered for home when she discharges. Dr. Oates notified.
--- NOTE | 2022-09-09 09:48 | NUR ---
Initial dose of Baclofen 5mg given. Discussed drug purpose and side effects. Lexicomp drug handout given to pt.
[2022-09-09 12:00] VITALS: BP 123/68; PULSE 101; TEMP 97.6
--- NOTE | 2022-09-09 13:22 | NUR ---
Interdisciplinary team discussed making pt Mod I in her room. Her current Harley Fall risk is 40 & unable to do the Tinetti due to pt being TTWB on right LE. Pt has demonstrated safety & maintaining TTWB using the walker. Pt was made Mod I in her room using the r/walker.
--- NOTE | 2022-09-09 16:51 | NUR ---
Molder Trimmer and SW student met with Patient at bedside in IPR to follow-up with treatment goals and discuss discharge planning. Patient reports that she is pleased with her care and praises treatment team stating "I couldn't have asked for more". Patient reflects that she did not believe that she could be ambulating at this extent and is ready to go home on anticipated discharge date, , 09-11-22. Patient is established with [facility] and a request for DME walker has been submitted. Discharge Plan: Home with [facility].
[2022-09-09 16:53] VITALS: BP 125/76; PULSE 89; TEMP 98.5
--- NOTE | 2022-09-09 19:00 | NUR ---
RECEIVED CHANGE OF SHIFT REPORT FROM DAY SHIFT RN. PATIENT RESTING IN BED, UP IN ROOM INDEPENDENTLY, CALL LIGHT IN REACH. DENIES ANY NEEDS AT TIME OF REPORT.
[2022-09-10 04:15] VITALS: BP 126/88; PULSE 76; TEMP 97.5
[2022-09-10 06:46] VITALS: BP_SYST 126
--- NOTE | 2022-09-10 06:47 | NUR ---
Shift report received from assistant casino shift manager RN. Pt sleeping supine in bed. Call light is in her reach. She remains on Mod I status.
--- NOTE | 2022-09-10 06:48 | NUR ---
CHANGE OF SHIFT REPORT GIVEN TO DAY SHIFT RNOXANA.
--- NOTE | 2022-09-10 08:19 | NUR ---
Pt ate 100% of breakfast independently. She is currently off the unit w/ PT.
--- NOTE | 2022-09-10 10:47 | NUR ---
Has lack of transportation kept you from medical appts, meetings, work, or from getting things needed for daily living? NO How often do you feel lonely or isolated from those around you? RARELY Over the past 5 days, how much of the time has pain made it hard for you to sleep? OCCASIONALLY Over the past 5 days, how often have you limited your participation in therapy due to pain? RARELY/NOT AT ALL Over the past 5 days, how often have you limited your day-to-day activities because of pain? RARELY/NOT AT ALL
[2022-09-10 17:06] VITALS: BP 114/81; PULSE 71; TEMP 98.8
[2022-09-10 18:30] VITALS: BP_SYST 114
--- NOTE | 2022-09-10 21:00 | NUR ---
PT RESTING IN BED. MOD I IN ROOM WITH WALKER. SEE MAR FOR PAIN MED GIVEN EARLIER. PAIN CONTROLLED AT THIS TIME. INSTRUCTED PT TO CALL FOR ASSISTANCE AT ANYTIME IF FEELING UNSTEADY. PT AGREED. ACCUCHECK 247. SEE MAR FOR SSI. CALL LIGHT IN REACH.
[2022-09-11 05:47] VITALS: BP 134/88; PULSE 81; TEMP 98.6
[2022-09-11 06:44] VITALS: BP_SYST 134
[2022-09-11] MEDS ORDERED: LIORESAL 1010 MG/TAB PO (09:19)
[2022-09-11] MEDS ORDERED: TYLENOL 500MG500 MG PO (09:20)
[2022-09-11] MEDS ORDERED: SENOKOT S 50 MG1 TAB PO (09:21)
[2022-09-11] MEDS ORDERED: MIRALAX238G PO (09:21)
[2022-09-11] MEDS ORDERED: ROXICODONE 55 MG/TAB PO (09:23)
--- NOTE | 2022-09-11 13:28 | NUR ---
Discharge QIM scores were reviewed by the team. Code of 6 for car transfer was determined by team discussion to be the most usual performance for this patient during the discharge assessment period. Code of 6 chosen for 1 step was determined by team discussion to be the most usual performance for this patient during the discharge assessment period. Code of 6 chosen for 6 step was determined by team discussion to be the most usual performance for this patient during the discharge assessment period.--Gilma Garsia, PD
--- NOTE | 2022-09-12 07:36 | NUR ---
stock worker and deliverer faxed orders and discharge summary to [facility].
== END 2022-09-11 11:47 | disposition home health service (06) | DRG 949 ==
LOC: SURG 10:21
PROVIDERS: ADMIT Physical Medicine & Rehabilitation Sports Medicine
DX: T84.010D Broken internal right hip prosthesis, subsequent encounter (principal); E87.20 Acidosis, unspecified; Z96.641 Presence of right artificial hip joint; M21.371 Foot drop, right foot; W19.XXXD Unspecified fall, subsequent encounter; G89.29 Other chronic pain; M48.02 Spinal stenosis, cervical region; E11.9 Type 2 diabetes mellitus without complications; I10 Essential (primary) hypertension; K59.00 Constipation, unspecified; E78.5 Hyperlipidemia, unspecified; F32.A Depression, unspecified; L65.9 Nonscarring hair loss, unspecified; M16.12 Unilateral primary osteoarthritis, left hip; M51.16 Intervertebral disc disorders with radiculopathy, lumbar region; Z79.4 Long term (current) use of insulin; Z74.09 Other reduced mobility; R26.89 Other abnormalities of gait and mobility; Z79.891 Long term (current) use of opiate analgesic; Z79.899 Other long term (current) drug therapy
CPT/HCPCS: J1650; J1815

== ENCOUNTER → 2023-12-01 | Outpatient (CLI) | payer MEDICARE ==
[~2023-12-01] MED LIST changes: +LIORESAL 1010 MG/TAB PO; +MIRALAX238G PO; +ROXICODONE 55 MG/TAB PO; +SENOKOT S 50 MG1 TAB PO
== END ==
LOC: COL.RAD 08:12
DX: M51.06 Intervertebral disc disorders with myelopathy, lumbar region (principal); M48.02 Spinal stenosis, cervical region; M48.07 Spinal stenosis, lumbosacral region; R90.82 White matter disease, unspecified; M89.38 Hypertrophy of bone, other site; M51.16 Intervertebral disc disorders with radiculopathy, lumbar region; G62.9 Polyneuropathy, unspecified

== ENCOUNTER → 2024-01-27 | Outpatient (CLI) | payer MEDICARE | LOC: MHCPAIN 09:11 | DX: M54.2 Cervicalgia (principal); M54.16 Radiculopathy, lumbar region; M99.53 Intervertebral disc stenosis of neural canal of lumbar region; E11.40 Type 2 diabetes mellitus with diabetic neuropathy, unspecified; M21.371 Foot drop, right foot; N30.10 Interstitial cystitis (chronic) without hematuria | CPT/HCPCS: G0463 ==